=== PATIENT | male | born 1965 | race Caucasian/White ===

== ENCOUNTER 2017-07-02 11:52 | Emergency (ER) | payer OTHER ==
[~2017-07-02 11:52] MED LIST: NEXIUM PO
[2017-07-16] MEDS ORDERED: CIALIS PO (12:00)
== END 2017-07-02 13:19 | disposition home or self-care (01) ==
LOC: SED 11:52
DX: S39.012A Strain of muscle, fascia and tendon of lower back, initial encounter (principal); K21.9 Gastro-esophageal reflux disease without esophagitis; Z90.49 Acquired absence of other specified parts of digestive tract; X50.9XXA Other and unspecified overexertion or strenuous movements or postures, initial encounter; Y93.89 Activity, other specified; Y92.69 Other specified industrial and construction area as the place of occurrence of the external cause; Y99.0 Civilian activity done for income or pay
CPT/HCPCS: 99283

== ENCOUNTER → 2017-07-16 | Day surgery (SDC) | payer BC ==
[~2017-07-16] MED LIST changes: +CIALIS PO
--- NOTE | ~2017-07-16 | OR ---
Unit #: [id number] #: [id number] Patient: LEIGH ANN ALEXANDER [id number] [address] [place], [place] [address] [id number] O MR#: [id number] NAME: LEIGH ANN ALEXANDER ROOM: Date of Procedure: 07/16/2017 Admission Date: 07/16/2017 Surgeon: Slade Medrano M.D. : 1965 Attending Physician: Slade Medrano M.D. Primary Care Physician: Kenzie Vogt M.D. OPERATIVE REPORT PREOPERATIVE DIAGNOSES The patient has come for screening colonoscopy. He has never had a colonoscopy in the past. There is a family history of colon cancer in distant relatives. PROCEDURES PERFORMED Colonoscopy and polypectomy. POSTOPERATIVE DIAGNOSES 1. Single sessile polyp in the mid sigmoid colon. This was about 8 mm in size. It was removed using snare polypectomy. 2. Small internal hemorrhoids. 3. Rest of examination up to cecum and terminal ileum was normal. The quality of the prep was excellent. RECOMMENDATIONS 1. Follow up results of polyp histology. 2. Consider repeat colonoscopy in 5 years. SEDATION USED MAC. DESCRIPTION OF PROCEDURE Following detailed explanation of the potential risks and complications of a colonoscopy, namely perforation, bleeding, and complications related to sedation, the patient was brought to GI lab and laid in the left lateral decubitus position. A digital rectal examination was performed, which was normal. Lubricated tip of the Olympus video colonoscope was inserted through the anus and advanced under direct vision. The scope was advanced and passed up to sigmoid into descending colon. No diverticula were noted in this area. The scope tip was then navigated all the way up to cecum with visualization of the ileocecal valve and the appendiceal orifice. Preparation was excellent with good visualization and photodocumentation was obtained. Last few inches of the terminal ileum also visualized after intubation of the ileocecal valve and appeared normal. Successive segments of the colonic mucosa were examined upon withdrawal and appeared unremarkable except for a single sessile polyp in the mid sigmoid colon. The latter was about 8 mm in size. It was removed using snare cautery polypectomy. The polyp was retrieved and sent for histology. No additional polyps were noted. The patient did not have any diverticulosis, but did have small internal hemorrhoids seen at the anal verge. The scope was then withdrawn. The patient returned to the Unit #: [id number] #: [id number] Patient: LEIGH ANN ALEXANDER [facility]. He tolerated the procedure without any postprocedure complications. Dictated by... Awais Park/nasrin TD: 07/16/2017 15:53 JOB #: [id number] CC: Kenzie Vogt M.D. OPERATIVE REPORT Page 1 of 1 X Slade Medrano MD X PROCEDURE OPERATIVE NOTE
== END | disposition home or self-care (01) ==
LOC: COPS 11:35
DX: Z12.11 Encounter for screening for malignant neoplasm of colon (principal); D12.5 Benign neoplasm of sigmoid colon; K64.8 Other hemorrhoids; K21.9 Gastro-esophageal reflux disease without esophagitis; Z80.0 Family history of malignant neoplasm of digestive organs; Z79.899 Other long term (current) drug therapy; Z98.52 Vasectomy status; Z90.49 Acquired absence of other specified parts of digestive tract
CPT/HCPCS: 88305; J2250